=== PATIENT | female | born 1990 | race Caucasian/White ===

== ENCOUNTER 2017-04-05 02:13 | Emergency (ER) | payer OTHER ==
[~2017-04-05] VITALS: Ht 167.6 cm; Wt 63.4 kg
[2017-04-05 02:59] LABS: HEMATOCRIT 44.8 % (36.0-46.0); MCH 30.1 PG (29.0-34.0); MCHC 32.4 G/DL (30.0-36.0); MCV 92.9 FL (83-99); RBC DIS.WIDTH-CV 12.3 % (11.8-14.6); RBC DIS.WIDTH-SD 42.4 % (39-53); RED BLOOD COUNT 4.82 M/uL (3.80-5.20); WHITE BLOOD COUNT 10.8 K/uL (4.1-10.2)
[2017-04-05 03:09] LABS: CHLORIDE 105 mEq/L (99-109); POTASSIUM 4.2 mEq/L (3.7-5.4)
[2017-04-05 03:10] LABS: SODIUM 143 mEq/L (136-147)
[2017-04-05 03:12] LABS: GLUCOSE 80 mg/dL (70-99)
[2017-04-05 03:13] LABS: ANION GAP 8 MEQ/L (2-14)
[2017-04-05 03:14] LABS: TOTAL BILIRUBIN 0.3 mg/dL (0.0-1.0)
[2017-04-05 03:15] LABS: ALKALINE PHOSPHATASE 58 IU/L (3-129); SERUM ETHYL ALCOHOL < 10 mg/dL
[2017-04-05 03:16] LABS: GFR ESTIMATE (CALCULATED) > 59 mL/min/
[2017-04-05 03:17] LABS: UREA NITROGEN (BUN) 16 mg/dL (9-23)
[2017-04-05 03:40] LABS: HEMATOLOGY COMMENT 1 SN; PLAT.SUFFICIENCY ADEQUATE; PLATELET CLUMPS PRESENT - PLATELET COUNT APPEARS ADQ.; PLATELET COUNT UNABLE TO REPORT K/uL (156-360)
[2017-04-05] MEDS ORDERED: NARCAN4 MG NS (03:56)
[2017-04-05 04:49] VITALS: BP 95/55
== END 2017-04-05 04:51 | disposition home or self-care (01) ==
LOC: EDBD 02:13 → EME 02:13
PROVIDERS: Emergency Medicine
DX: T40.1X1A Poisoning by heroin, accidental (unintentional), initial encounter (principal)
CPT/HCPCS: 80053; 81003; 85027; 99281; 99284; G0480; J2310

== ENCOUNTER 2017-08-31 13:17 | Inpatient (IN) | payer OTHER ==
[2017-08-31] VITALS (8 sets, daily range): BP systolic 103–167; BP diastolic 64–119
[~2017-08-31] VITALS: Ht 165.1 cm; Wt 62.2 kg
[~2017-08-31 13:17] MED LIST: NARCAN4 MG NS
[2017-08-31 14:12] LABS: HEMATOCRIT 51.3 % (36.0-46.0); MCH 28.9 PG (29.0-34.0); MCHC 31.2 G/DL (30.0-36.0); MCV 92.6 FL (83-99); RBC DIS.WIDTH-CV 15.2 % (11.8-14.6); RBC DIS.WIDTH-SD 52.4 % (39-53); RED BLOOD COUNT 5.54 M/uL (3.80-5.20); WHITE BLOOD COUNT 5.2 K/uL (4.1-10.2)
[2017-08-31 14:15] LABS: CARBON DIOXIDE (BICARBONATE) 23.5 MEQ/L (20-31)
[2017-08-31 14:22] LABS: CHLORIDE 108 mEq/L (99-109); POTASSIUM 2.7 mEq/L (3.7-5.4); SODIUM 143 mEq/L (136-147)
[2017-08-31 14:23] LABS: GLUCOSE 106 mg/dL (70-99)
[2017-08-31 14:25] LABS: ANION GAP 16 MEQ/L (2-14)
[2017-08-31 14:27] LABS: GFR ESTIMATE (CALCULATED) 57 mL/min/
[2017-08-31 14:28] LABS: UREA NITROGEN (BUN) 16 mg/dL (9-23)
[2017-08-31 14:28] LABS: BASE EXCESS -11.2 mEq/L (-3 to +3); BICARBONATE 21.4 mEq/L (22-26); CARBOXY HGB 1.8 % (0-5); METHEMOGLOBIN 0.8 % (0-1.5); PCO2 81 mm Hg (35-45); PO2 68 mm Hg (80-100)
[2017-08-31 14:30] LABS: COMMENTS - BLOOD GASES A+C+; DEVICE 840 PB; FI02 100 %; MECHANICAL RATE 16 resp/min; MODE AC; PEEP 10 CM/H20; SITE RR; TIDAL VOLUME 450 ML; TOTAL RESP RATE 16 resp/min; pH 7.03 (7.35-7.45)
[2017-08-31 14:34] LABS: TROP-I INTERPRETATION NEGATIVE; TROPONIN-I 0.02 ng/mL (0.0-0.30)
[2017-08-31 15:36] LABS: ADD MIUA? YES; BILIRUBIN NEGATIVE; BLOOD MODERATE; COLOR YELLOW ((YELLOW)); GLUCOSE (STRIP) NEGATIVE; KETONES NEGATIVE; LEUKOCYTES NEGATIVE; NITRITE NEGATIVE; PROTEIN (STRIP) 30; SPECIFIC GRAVITY 1.017 (1.000-1.030); UROBILINOGEN 0.2 MG/DL (0.2-1.0)
[2017-08-31 15:41] LABS: BACTERIA RARE /HPF; EPITHELIAL CELLS RARE /HPF; HYALINE CASTS 0-5 /LPF; RED BLOOD CELLS 0-5 /HPF (0-5); UCUL ADDED? NO; WHITE BLOOD CELLS 0-5 /HPF (0-5)
[2017-08-31 15:42] LABS: MUCUS TRACE /LPF
[2017-08-31 15:50] LABS: ADD MEDTOX COMMENT Y; AMPHETAMINE PRESUMPTIVE POSITIVE (500 ng/mL); BARBITURATES NEGATIVE (200 ng/mL); BENZODIAZEPINES PRESUMPTIVE POSITIVE (150 ng/mL); COCAINE PRESUMPTIVE POSITIVE (150 ng/mL); INTERNAL CONTROLS VALID? YES; METHADONE NEGATIVE (200 ng/mL); METHAMPHETAMINE NEGATIVE (500 ng/mL); OPIATES (MORPHINE) NEGATIVE (100 ng/mL); OXYCODONE NEGATIVE (100 ng/mL); PHENCYCLIDINE NEGATIVE (25 ng/mL); PROPOXYPHENE NEGATIVE (300 ng/mL); THC CANNABINOIDS NEGATIVE (50 ng/mL); TRICYCLIC ANTIDEPRESSANTS NEGATIVE (300 ng/mL)
[2017-08-31 15:52] LABS: PLAT.SUFFICIENCY ADEQUATE; PLATELET COUNT 191 K/uL (156-360)
[2017-08-31 16:24] LABS: BENZODIAZEPINES, URINE SCREEN POSITIVE (200 ng/mL)
[2017-08-31 17:13] LABS: EOSINOPHIL (%) 0.3 % (0-5); HEMATOCRIT 46.1 % (36.0-46.0); IMMATURE GRANULOCYTE (%) 0.3 % (0.0-0.7); INSTRUMENT ABS NEUTROPHIL CT 2.5 K/uL; LYMPHOCYTE COUNT 0.3 K/uL (1.0-2.8); MCH 28.8 PG (29.0-34.0); MCHC 31.7 G/DL (30.0-36.0); MCV 90.9 FL (83-99); MONOCYTE (%) 7.8 % (3-12); MONOCYTE COUNT 0.2 K/uL (0-0.8); NEUTROPHIL (%) 80.3 % (45-76); NEUTROPHIL COUNT 2.5 K/uL (1.8-6.4); PLATELET COUNT 222 K/uL (156-360); RBC DIS.WIDTH-CV 15.3 % (11.8-14.6); RBC DIS.WIDTH-SD 51.3 % (39-53); RED BLOOD COUNT 5.07 M/uL (3.80-5.20); WHITE BLOOD COUNT 3.1 K/uL (4.1-10.2)
[2017-08-31 17:18] LABS: PROTHROMBIN TIME 11.4 SEC (10.2-12.9)
[2017-08-31 17:20] LABS: PTT 24.6 SEC (25-37)
[2017-08-31 17:25] LABS: BASE EXCESS -7.3 mEq/L (-3 to +3); CARBOXY HGB 1.6 % (0-5); METHEMOGLOBIN 1.2 % (0-1.5); PCO2 59 mm Hg (35-45); PO2 92 mm Hg (80-100); SITE LR; pH 7.18 (7.35-7.45)
[2017-08-31 17:26] LABS: COMMENTS - BLOOD GASES A+C+; DEVICE VENT; FI02 100 %; MECHANICAL RATE 20 resp/min; MODE AC/VC; PEEP 14 CM/H20; TIDAL VOLUME 450 ML; TOTAL RESP RATE 20 resp/min
[2017-08-31 17:40] LABS: METH RESISTANT S AUREUS PCR NEGATIVE (NEGATIVE)
[2017-08-31 17:41] LABS: PROBE CHECK PASS; SPECIMEN PROCESSING CONTROL PASS
[2017-08-31 17:46] LABS: ALKALINE PHOSPHATASE 42 IU/L (3-129); ANION GAP 9 MEQ/L (2-14); CHLORIDE 111 MEQ/L (99-109); GFR ESTIMATE (CALCULATED) > 59 mL/min/; MAGNESIUM 1.7 mg/dl (1.3-2.7); POTASSIUM 3.1 MEQ/L (3.7-5.4); SAMPLE HEMOLYSIS CHECK 0; SAMPLE ICTERIC CHECK 0; SAMPLE LIPEMIA CHECK 0; SODIUM 142 MEQ/L (136-147); TOTAL BILIRUBIN 0.7 MG/DL (0.0-1.0); UREA NITROGEN (BUN) 18 mg/dL (9-23)
[2017-08-31 17:47] LABS: GLUCOSE 34 mg/dL (70-99)
[2017-08-31 18:14] LABS: QUANTITATIVE HCG 25752.7 MIU/ML
[2017-08-31 18:25] LABS: POINT-OF-CARE METER ID UU14314083
[2017-08-31 19:22] LABS: BASE EXCESS -7.5 mEq/L (-3 to +3); BICARBONATE 19.7 mEq/L (22-26); CARBOXY HGB 1.4 % (0-5); COMMENTS - BLOOD GASES C+A+; DEVICE VENT; FI02 100 %; METHEMOGLOBIN 1.2 % (0-1.5); MODE AC; PCO2 45 mm Hg (35-45); PO2 202 mm Hg (80-100); SITE LR
[2017-08-31 19:23] LABS: MECHANICAL RATE 28 resp/min; PEEP 14 CM/H20; TIDAL VOLUME 450 ML; TOTAL RESP RATE 35 resp/min; pH 7.25 (7.35-7.45)
[2017-08-31 20:21] LABS: POINT-OF-CARE METER ID UU14162636
[2017-08-31 22:13] LABS: POINT-OF-CARE METER ID UU14162636
[2017-08-31 22:40] LABS: INFLUENZA A VIRAL ANTIGEN NEGATIVE; INFLUENZA B VIRAL ANTIGEN NEGATIVE
[2017-09-01] VITALS (24 sets, daily range): BP systolic 83–138; BP diastolic 52–81
[2017-09-01 02:45] LABS: POINT-OF-CARE METER ID UU14314082
[2017-09-01 02:45] LABS: POINT-OF-CARE METER ID UU14314082
[2017-09-01 05:06] LABS: POINT-OF-CARE METER ID UU14314082
[2017-09-01 05:57] LABS: ANION GAP 10 MEQ/L (2-14); CHLORIDE 112 MEQ/L (99-109); GFR ESTIMATE (CALCULATED) > 59 mL/min/; POTASSIUM 3.7 MEQ/L (3.7-5.4); SAMPLE HEMOLYSIS CHECK 0; SAMPLE ICTERIC CHECK 0; SAMPLE LIPEMIA CHECK 0; SODIUM 143 MEQ/L (136-147); UREA NITROGEN (BUN) 13 mg/dL (9-23)
[2017-09-01 06:04] LABS: GLUCOSE 111 mg/dL (70-99); MAGNESIUM 1.3 mg/dl (1.3-2.7)
[2017-09-01 06:15] LABS: HEMATOCRIT 35.7 % (36.0-46.0); MCH 29.3 PG (29.0-34.0); MCHC 32.2 G/DL (30.0-36.0); MCV 91.1 FL (83-99); RBC DIS.WIDTH-CV 15.3 % (11.8-14.6); WHITE BLOOD COUNT 12.5 K/uL (4.1-10.2)
[2017-09-01 06:17] LABS: RED BLOOD COUNT 3.92 M/uL (3.80-5.20)
[2017-09-01 07:39] LABS: EOSINOPHIL (%) 0 % (0-5); IMMATURE GRANULOCYTE (%) 0.3 % (0.0-0.7); INSTRUMENT ABS NEUTROPHIL CT 11.6 K/uL; LYMPHOCYTE COUNT 0.4 K/uL (1.0-2.8); MEAN PLAT.VOLUME 11.4 uM^3 (9.5-12.4); MONOCYTE (%) 3.9 % (3-12); MONOCYTE COUNT 0.5 K/uL (0-0.8); NEUTROPHIL (%) 92.6 % (45-76); NEUTROPHIL COUNT 11.6 K/uL (1.8-6.4); PLAT.SUFFICIENCY DECREASED
[2017-09-01 07:49] LABS: BASE EXCESS -4.4 mEq/L (-3 to +3); METHEMOGLOBIN 1.1 % (0-1.5); PCO2 39 mm Hg (35-45); PO2 90 mm Hg (80-100); pH 7.34 (7.35-7.45)
[2017-09-01 07:50] LABS: COMMENTS - BLOOD GASES A+C+; DEVICE VENT; FI02 50 %; MECHANICAL RATE 28 resp/min; MODE AC/VC; PEEP 9 CM/H20; SITE LR; TIDAL VOLUME 450 ML; TOTAL RESP RATE 28 resp/min
[2017-09-01 07:58] LABS: PLATELET COUNT 134 K/uL (156-360)
[2017-09-01 09:59] LABS: INTER. NORMALIZED RATIO 1.2; PROTHROMBIN TIME 13.7 SEC (10.2-12.9)
[2017-09-01 10:01] LABS: PTT 29.7 SEC (25-37)
[2017-09-01 10:45] LABS: HIV INDEX 0.07; HIV-1/2 AB/AG COMBO Nonreactive
[2017-09-01 12:26] LABS: POINT-OF-CARE METER ID UU14314082
[2017-09-01 16:13] LABS: VANCOMYCIN, TROUGH 9.9 MCG/ML (10-20)
[2017-09-01 16:34] LABS: HEMATOCRIT 28.9 % (36.0-46.0); MCH 29.9 PG (29.0-34.0); MCHC 33.2 G/DL (30.0-36.0); MEAN PLAT.VOLUME 11.4 uM^3 (9.5-12.4); PLATELET COUNT 107 K/uL (156-360); RBC DIS.WIDTH-CV 15.8 % (11.8-14.6); RBC DIS.WIDTH-SD 51.8 % (39-53); RED BLOOD COUNT 3.21 M/uL (3.80-5.20); WHITE BLOOD COUNT 14.3 K/uL (4.1-10.2)
[2017-09-01 16:47] LABS: ANION GAP 12 MEQ/L (2-14); CHLORIDE 110 MEQ/L (99-109); GFR ESTIMATE (CALCULATED) > 59 mL/min/; GLUCOSE 125 mg/dL (70-99); MAGNESIUM 1.9 mg/dl (1.3-2.7); POTASSIUM 3.6 MEQ/L (3.7-5.4); SODIUM 141 MEQ/L (136-147); UREA NITROGEN (BUN) 11 mg/dL (9-23)
[2017-09-02] VITALS (24 sets, daily range): BP systolic 98–152; BP diastolic 45–86
[2017-09-02 00:37] LABS: BASE EXCESS -2.6 mEq/L (-3 to +3); BICARBONATE 21.2 mEq/L (22-26); METHEMOGLOBIN 1.4 % (0-1.5); PO2 85 mm Hg (80-100); pH 7.43 (7.35-7.45)
[2017-09-02 00:38] LABS: PCO2 32 mm Hg (35-45); SITE RR
[2017-09-02 00:39] LABS: COMMENTS - BLOOD GASES A+C+; DEVICE VENT; FI02 40 %; MECHANICAL RATE 28 resp/min; MODE AC; PEEP 7 CM/H20; TIDAL VOLUME 450 ML; TOTAL RESP RATE 28 resp/min
[2017-09-02 05:56] LABS: HEMATOCRIT 25.2 % (36.0-46.0); MCH 30.7 PG (29.0-34.0); MCHC 33.7 G/DL (30.0-36.0); MEAN PLAT.VOLUME 11.8 uM^3 (9.5-12.4); PLATELET COUNT 102 K/uL (156-360); RBC DIS.WIDTH-CV 15.9 % (11.8-14.6); RBC DIS.WIDTH-SD 53.2 % (39-53); RED BLOOD COUNT 2.77 M/uL (3.80-5.20); WHITE BLOOD COUNT 16.1 K/uL (4.1-10.2)
[2017-09-02 06:42] LABS: ANION GAP 9 MEQ/L (2-14); CHLORIDE 111 MEQ/L (99-109); GFR ESTIMATE (CALCULATED) > 59 mL/min/; POTASSIUM 3.6 MEQ/L (3.7-5.4); SAMPLE HEMOLYSIS CHECK 0; SAMPLE ICTERIC CHECK 0; SAMPLE LIPEMIA CHECK 0; SODIUM 143 MEQ/L (136-147); UREA NITROGEN (BUN) 12 mg/dL (9-23)
[2017-09-02 06:51] LABS: GLUCOSE 90 mg/dL (70-99)
[2017-09-02 07:03] LABS: EOSINOPHIL (%) 0.6 % (0-5); EOSINOPHIL COUNT 0.1 K/uL (0-0.3); HEMATOLOGY COMMENT 1 SMEAR COMPATIBLE; IMMATURE GRANULOCYTE (%) 4.2 % (0.0-0.7); IMMATURE GRANULOCYTE COUNT 0.7 K/uL; INSTRUMENT ABS NEUTROPHIL CT 13.8 K/uL; LYMPHOCYTE COUNT 1.2 K/uL (1.0-2.8); MONOCYTE (%) 2.2 % (3-12); MONOCYTE COUNT 0.4 K/uL (0-0.8); NEUTROPHIL (%) 85.6 % (45-76); NEUTROPHIL COUNT 13.8 K/uL (1.8-6.4); PLAT.SUFFICIENCY DECREASED
[2017-09-02] MEDS ORDERED: ALPRAZOLAM2 MG PO (13:32)
[2017-09-02] MEDS ORDERED: FLUOXETINE HCL20 MG PO (13:33)
[2017-09-02] MEDS ORDERED: [UNRECOGNIZED DRUG - REMARK] (13:36)
[2017-09-03] VITALS (24 sets, daily range): BP systolic 108–141; BP diastolic 57–82
[2017-09-03 05:15] LABS: HEMATOCRIT 23.7 % (36.0-46.0); MCH 30.9 PG (29.0-34.0); MCHC 33.3 G/DL (30.0-36.0); MCV 92.6 FL (83-99); MEAN PLAT.VOLUME 11.6 uM^3 (9.5-12.4); PLATELET COUNT 99 K/uL (156-360); RBC DIS.WIDTH-CV 16.2 % (11.8-14.6); RBC DIS.WIDTH-SD 55.5 % (39-53); RED BLOOD COUNT 2.56 M/uL (3.80-5.20); WHITE BLOOD COUNT 14.6 K/uL (4.1-10.2)
[2017-09-03 05:45] LABS: ANION GAP 7 MEQ/L (2-14); CHLORIDE 113 MEQ/L (99-109); GFR ESTIMATE (CALCULATED) > 59 mL/min/; GLUCOSE 100 mg/dL (70-99); MAGNESIUM 1.8 mg/dl (1.3-2.7); POTASSIUM 3.6 MEQ/L (3.7-5.4); SAMPLE HEMOLYSIS CHECK 0; SAMPLE ICTERIC CHECK 0; SAMPLE LIPEMIA CHECK 0; SODIUM 143 MEQ/L (136-147); UREA NITROGEN (BUN) 13 mg/dL (9-23)
[2017-09-03 06:16] LABS: EOSINOPHIL (%) 0.9 % (0-5); EOSINOPHIL COUNT 0.1 K/uL (0-0.3); IMMATURE GRANULOCYTE (%) 3.7 % (0.0-0.7); IMMATURE GRANULOCYTE COUNT 0.5 K/uL; INSTRUMENT ABS NEUTROPHIL CT 12.5 K/uL; LYMPHOCYTE COUNT 1.1 K/uL (1.0-2.8); MONOCYTE (%) 1.8 % (3-12); MONOCYTE COUNT 0.3 K/uL (0-0.8); NEUTROPHIL (%) 85.6 % (45-76); NEUTROPHIL COUNT 12.5 K/uL (1.8-6.4)
[2017-09-04] VITALS (26 sets, daily range): BP systolic 106–165; BP diastolic 59–113
[2017-09-04 05:36] LABS: EOSINOPHIL (%) 1.9 % (0-5); EOSINOPHIL COUNT 0.2 K/uL (0-0.3); HEMATOCRIT 26.7 % (36.0-46.0); IMMATURE GRANULOCYTE (%) 0.4 % (0.0-0.7); INSTRUMENT ABS NEUTROPHIL CT 6.2 K/uL; LYMPHOCYTE COUNT 1.1 K/uL (1.0-2.8); MCH 29.4 PG (29.0-34.0); MCHC 31.8 G/DL (30.0-36.0); MCV 92.4 FL (83-99); MEAN PLAT.VOLUME 11.6 uM^3 (9.5-12.4); MONOCYTE (%) 3.5 % (3-12); MONOCYTE COUNT 0.3 K/uL (0-0.8); NEUTROPHIL (%) 79.7 % (45-76); NEUTROPHIL COUNT 6.2 K/uL (1.8-6.4); PLATELET COUNT 104 K/uL (156-360); RBC DIS.WIDTH-CV 16.4 % (11.8-14.6); RBC DIS.WIDTH-SD 55.8 % (39-53); RED BLOOD COUNT 2.89 M/uL (3.80-5.20); WHITE BLOOD COUNT 7.8 K/uL (4.1-10.2)
[2017-09-04 06:22] LABS: ANION GAP 6 MEQ/L (2-14); CHLORIDE 114 MEQ/L (99-109); GFR ESTIMATE (CALCULATED) > 59 mL/min/; GLUCOSE 101 mg/dL (70-99); MAGNESIUM 1.6 mg/dl (1.3-2.7); POTASSIUM 3.6 MEQ/L (3.7-5.4); SAMPLE HEMOLYSIS CHECK 0; SAMPLE ICTERIC CHECK 0; SAMPLE LIPEMIA CHECK 0; SODIUM 144 MEQ/L (136-147); UREA NITROGEN (BUN) 9 mg/dL (9-23)
[2017-09-05] VITALS (23 sets, daily range): BP systolic 0–151; BP diastolic 0–115
[2017-09-05 04:53] LABS: EOSINOPHIL (%) 2.3 % (0-5); EOSINOPHIL COUNT 0.1 K/uL (0-0.3); HEMATOCRIT 29.4 % (36.0-46.0); IMMATURE GRANULOCYTE (%) 0.6 % (0.0-0.7); INSTRUMENT ABS NEUTROPHIL CT 3.5 K/uL; LYMPHOCYTE COUNT 1.2 K/uL (1.0-2.8); MCH 29.4 PG (29.0-34.0); MCV 89.1 FL (83-99); MEAN PLAT.VOLUME 11.7 uM^3 (9.5-12.4); MONOCYTE (%) 6.1 % (3-12); MONOCYTE COUNT 0.3 K/uL (0-0.8); NEUTROPHIL (%) 67.1 % (45-76); NEUTROPHIL COUNT 3.5 K/uL (1.8-6.4); PLATELET COUNT 137 K/uL (156-360); RBC DIS.WIDTH-CV 15.8 % (11.8-14.6); RBC DIS.WIDTH-SD 51.8 % (39-53); WHITE BLOOD COUNT 5.2 K/uL (4.1-10.2)
[2017-09-05 04:56] LABS: CHLORIDE 107 mEq/L (99-109); POTASSIUM 3.6 mEq/L (3.7-5.4); SODIUM 144 mEq/L (136-147)
[2017-09-05 04:57] LABS: MAGNESIUM 1.7 mg/dL (1.3-2.7)
[2017-09-05 04:58] LABS: GLUCOSE 88 mg/dL (70-99)
[2017-09-05 05:00] LABS: ANION GAP 10 MEQ/L (2-14)
[2017-09-05 05:02] LABS: GFR ESTIMATE (CALCULATED) > 59 mL/min/
[2017-09-05 05:03] LABS: UREA NITROGEN (BUN) 10 mg/dL (9-23)
[2017-09-06] VITALS (14 sets, daily range): BP systolic 110–164; BP diastolic 58–120
[2017-09-06 05:52] LABS: ANION GAP 8 MEQ/L (2-14); CHLORIDE 105 MEQ/L (99-109); GFR ESTIMATE (CALCULATED) > 59 mL/min/; GLUCOSE 84 mg/dL (70-99); MAGNESIUM 1.6 mg/dl (1.3-2.7); POTASSIUM 3.7 MEQ/L (3.7-5.4); SAMPLE HEMOLYSIS CHECK 0; SAMPLE ICTERIC CHECK 0; SAMPLE LIPEMIA CHECK 0; SODIUM 140 MEQ/L (136-147); UREA NITROGEN (BUN) 12 mg/dL (9-23)
[2017-09-07 00:13] VITALS: BP 1321/84
[2017-09-07 03:19] VITALS: BP 142/85
[2017-09-07 08:14] VITALS: BP 117/73
[2017-09-07 14:26] LABS: HEMATOCRIT 37.4 % (36.0-46.0); MCH 29.9 PG (29.0-34.0); MCHC 33.7 G/DL (30.0-36.0); MCV 88.8 FL (83-99); MEAN PLAT.VOLUME 11.3 uM^3 (9.5-12.4); RBC DIS.WIDTH-CV 14.8 % (11.8-14.6); RBC DIS.WIDTH-SD 48.6 % (39-53)
[2017-09-07 14:44] LABS: ANION GAP 8 MEQ/L (2-14); CHLORIDE 109 MEQ/L (99-109); GFR ESTIMATE (CALCULATED) > 59 mL/min/; GLUCOSE 91 mg/dL (70-99); POTASSIUM 4.1 MEQ/L (3.7-5.4); SAMPLE HEMOLYSIS CHECK 0; SAMPLE ICTERIC CHECK 0; SAMPLE LIPEMIA CHECK 0; SODIUM 144 MEQ/L (136-147); UREA NITROGEN (BUN) 11 mg/dL (9-23)
[2017-09-07 14:55] LABS: PLATELET COUNT 277 K/uL (156-360); RED BLOOD COUNT 4.21 M/uL (3.80-5.20)
[2017-09-07 16:57] VITALS: BP 142/59
[2017-09-08 00:16] VITALS: BP 118/63
[2017-09-08 07:53] VITALS: BP 128/75
[2017-09-08 08:56] LABS: MCH 30.8 PG (29.0-34.0); MCHC 34.3 G/DL (30.0-36.0); MCV 89.7 FL (83-99); MEAN PLAT.VOLUME 10.7 uM^3 (9.5-12.4); PLATELET COUNT 317 K/uL (156-360); RBC DIS.WIDTH-CV 15.2 % (11.8-14.6); RBC DIS.WIDTH-SD 49.5 % (39-53); WHITE BLOOD COUNT 5.9 K/uL (4.1-10.2)
[2017-09-08 09:16] LABS: ANION GAP 9 MEQ/L (2-14); CHLORIDE 108 MEQ/L (99-109); SAMPLE HEMOLYSIS CHECK 0; SAMPLE ICTERIC CHECK 0; SAMPLE LIPEMIA CHECK 0; SODIUM 143 MEQ/L (136-147)
[2017-09-08 09:22] LABS: GFR ESTIMATE (CALCULATED) > 59 mL/min/; GLUCOSE 94 mg/dL (70-99); UREA NITROGEN (BUN) 10 mg/dL (9-23)
[2017-09-08 16:23] VITALS: BP 126/73
[2017-09-08 23:18] VITALS: BP 101/57
[2017-09-09 07:49] LABS: MCH 29.6 PG (29.0-34.0); MCHC 33.2 G/DL (30.0-36.0); MCV 88.9 FL (83-99); MEAN PLAT.VOLUME 10.2 uM^3 (9.5-12.4); PLATELET COUNT 368 K/uL (156-360); RBC DIS.WIDTH-CV 15.3 % (11.8-14.6); RBC DIS.WIDTH-SD 49.3 % (39-53); RED BLOOD COUNT 4.16 M/uL (3.80-5.20); WHITE BLOOD COUNT 7.6 K/uL (4.1-10.2)
[2017-09-09 08:10] LABS: ANION GAP 9 MEQ/L (2-14); CHLORIDE 106 MEQ/L (99-109); POTASSIUM 4.3 MEQ/L (3.7-5.4); SAMPLE HEMOLYSIS CHECK 0; SAMPLE ICTERIC CHECK 0; SAMPLE LIPEMIA CHECK 0; SODIUM 138 MEQ/L (136-147)
[2017-09-09 08:15] LABS: GFR ESTIMATE (CALCULATED) > 59 mL/min/; GLUCOSE 89 mg/dL (70-99); UREA NITROGEN (BUN) 12 mg/dL (9-23)
[2017-09-09 08:50] VITALS: BP 140/76
[2017-09-09 16:27] VITALS: BP 134/62
[2017-09-09] MEDS ORDERED: XANAX2 MG PO (19:47)
[2017-09-09] MEDS ORDERED: ADDERALL XR 3030 MG PO (19:48)
[2017-09-09] MEDS ORDERED: PROZAC20 MG PO (19:49)
[2017-09-09] MEDS ORDERED: MOTRIN800 MG PO (19:51)
[2017-09-09] MEDS ORDERED: TYLENOL REGULA325 MG PO (19:52)
== END 2017-09-09 17:38 | DRG 781 ==
LOC: EME 13:17 → 4WEST 15:20 → EDOF 15:20 → ENRESERV 15:23 → 4WEST 16:00 → ENRESERV 09-06 19:12 → 3EAST 09-06 21:41
PROVIDERS: Emergency Medicine; Internal Medicine Cardiovascular Disease; Internal Medicine Critical Care Medicine; Physician Assistant
PROC: 0BH17EZ Insertion of Endotracheal Airway into Trachea, Via Natural or Artificial Opening (ICD-10-PCS; principal; 2017-08-31)
PROC: 5A1945Z Respiratory Ventilation, 24-96 Consecutive Hours (ICD-10-PCS; principal; 2017-08-31)
PROC: 05HM33Z Insertion of Infusion Device into Right Internal Jugular Vein, Percutaneous Approach (ICD-10-PCS; principal; 2017-08-31)
PROC: B543ZZA Ultrasonography of Right Jugular Veins, Guidance (ICD-10-PCS; principal; 2017-08-31)
PROC: 0W9B30Z Drainage of Left Pleural Cavity with Drainage Device, Percutaneous Approach (ICD-10-PCS; 2017-09-02)
DX: O9A.212 Injury, poisoning and certain other consequences of external causes complicating pregnancy, second trimester (principal); Z3A.15 15 weeks gestation of pregnancy; T40.1X1A Poisoning by heroin, accidental (unintentional), initial encounter; O03.87 Sepsis following complete or unspecified spontaneous abortion; G92 Toxic encephalopathy; A41.9 Sepsis, unspecified organism; O99.322 Drug use complicating pregnancy, second trimester; R65.20 Severe sepsis without septic shock; O41.02X0 Oligohydramnios, second trimester, not applicable or unspecified; J96.02 Acute respiratory failure with hypercapnia; E87.2 Acidosis; J93.83 Other pneumothorax; F11.20 Opioid dependence, uncomplicated; J69.0 Pneumonitis due to inhalation of food and vomit; F19.10 Other psychoactive substance abuse, uncomplicated; F31.9 Bipolar disorder, unspecified; F41.9 Anxiety disorder, unspecified; Z59.0 Homelessness; Z76.5 Malingerer [conscious simulation]; E87.6 Hypokalemia; O36.0920 Maternal care for other rhesus isoimmunization, second trimester, not applicable or unspecified; E83.39 Other disorders of phosphorus metabolism; E16.2 Hypoglycemia, unspecified; O03.83 Metabolic disorder following complete or unspecified spontaneous abortion; R45.851 Suicidal ideations; O99.012 Anemia complicating pregnancy, second trimester; D64.9 Anemia, unspecified; T79.7XXA Traumatic subcutaneous emphysema, initial encounter; O99.342 Other mental disorders complicating pregnancy, second trimester; O99.112 Other diseases of the blood and blood-forming organs and certain disorders involving the immune mechanism complicating pregnancy, second trimester; D72.819 Decreased white blood cell count, unspecified
CPT/HCPCS: 36600; 70450; 71010; 71020; 71260; 74177; 76815; 80048; 80048 91; 80053; 80202; 81003; 82803; 82948; 83605; 83735; 83880; 84100; 84484; 84702; 84999; 85025; 85027; 85610; 85730; 86703; 86900; 86901; 87040; 87070; 87086; 87205; 87502; 87641; 90686; 93005; 94002; 94003; 94640; 94640 76; 94760; 99202; 99281; 99285; C1751; J0360; J1644; J1940; J2060; J2250; J2543; J2704; J3010; J3370; J3475; J3480; J7030; J7050; S0028

== ENCOUNTER 2017-09-09 17:15 | Inpatient (IN) | payer OTHER ==
[~2017-09-09 17:15] MED LIST changes: +ALPRAZOLAM2 MG PO; +FLUOXETINE HCL20 MG PO; +[UNRECOGNIZED DRUG - REMARK]
[2017-09-09] MEDS ORDERED: XANAX2 MG PO (19:47)
[2017-09-09] MEDS ORDERED: ADDERALL XR 3030 MG PO (19:48)
[2017-09-09] MEDS ORDERED: PROZAC20 MG PO (19:49)
[2017-09-09] MEDS ORDERED: MOTRIN800 MG PO (19:51)
[2017-09-09] MEDS ORDERED: TYLENOL REGULA325 MG PO (19:52)
[2017-09-10 07:50] VITALS: BP 114/63
[2017-09-10 15:41] VITALS: BP 144/69
[2017-09-11 07:28] VITALS: BP 101/51
[2017-09-11] MEDS ORDERED: HYDROXYZINE PAM50 MG PO (13:10)
[2017-09-11] MEDS ORDERED: FLUOXETINE HCL20 MG PO (13:10)
[2017-09-11 15:56] VITALS: BP 139/74
== END 2017-09-11 17:40 | disposition other institution (70) | DRG 881 ==
LOC: ENRESERV 17:15 → 1WEST 17:15
DX: F32.9 Major depressive disorder, single episode, unspecified (principal); F11.24 Opioid dependence with opioid-induced mood disorder; F90.9 Attention-deficit hyperactivity disorder, unspecified type; F41.9 Anxiety disorder, unspecified
CPT/HCPCS: 99202; Q0177